=== PATIENT | male | born 2005 | race Caucasian/White ===

== ENCOUNTER 2024-01-20 12:39 | Emergency (ER) | payer BC ==
[2024-01-20 12:51] VITALS: BP 115/60; PULSE 56; RESP 16; TEMP 97.9
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
[2024-01-20] MEDS: BACITRACIN OINT 1 EACH PACKET TOPICAL ONE (13:51)
== END 2024-01-20 13:56 | disposition home or self-care (01) ==
LOC: EC 12:39
DX: R55 Syncope and collapse
CPT/HCPCS: 93005; 99284